=== PATIENT | female | born 1975 | race Caucasian/White ===

== ENCOUNTER → 2017-10-14 12:42 | Outpatient (CLI) | payer MEDICAID ==
[~2017-10-14 12:42] MED LIST: HYDROCODONE-APA1 TAB PO; SYNTHROID125 MCG PO; VITAMIN E400 UNI2 PO; ZESTRIL10 MG PO; [UNRECOGNIZED DRUG - OTHER] PO
[2017-11-26 07:40] VITALS: BMI 39.6
== END | disposition home or self-care (01) ==
LOC: D.NM 12:42
DX: R10.11 Right upper quadrant pain (principal)

== ENCOUNTER 2017-11-26 06:55 | Day surgery (SDC) | payer MEDICAID ==
[2017-11-24 11:23] LABS: BASOPHILS 0.1 % (0-2); EOSINOPHILS 2.2 % (0-7); HEMOGLOBIN 10.7 g/dL (12-16); IMMATURE GRANULOCYTES 0.3 % (0-5); LYMPHOCYTES 27.6 % (15-50); MCH 29.1 pg (26.0-34.0); MCHC 31.5 g/dL (31.0-37.0); MCV 92.4 fL (80.0-100.0); MEAN PLATELET VOLUME 10.2 fL (7.4-10.4); MONOCYTES 10.2 % (2-11); NEUTROPHILS 59.6 % (40-80); PLATELET COUNT 275 10x3/uL (130-400); RBC 3.68 10x6/uL (4.00-5.40); RDW 13.9 % (11.5-14.5); WBC 7.6 10x3/uL (4.8-10.8)
[2017-11-24 11:38] LABS: ANION GAP 9.8 mmol/L (8-16); CALCIUM 7.7 mg/dL (8.5-10.1); CARBON DIOXIDE 27.9 mmol/L (21.0-32.0); CREATININE - SERUM 0.9 mg/dL (0.6-1.3); POTASSIUM - SERUM 3.7 mmol/L (3.5-5.1)
[~2017-11-26] VITALS: Ht 165.1 cm; Wt 108.0 kg
--- NOTE | ~2017-11-26 | OP ---
PATIENT NAME: CODY CONTRERAS MEDICAL RECORD: [id number] :79 LOCATION:[facility] ADMISSION DATE: SURGEON: BILLY MAIER MD DATE OF OPERATION: 11/26/2017 PREOPERATIVE DIAGNOSES: 1. Biliary dyskinesia. 2. Hypertension. 3. Irritable bowel syndrome. 4. Morbid obesity with BMI of 40. POSTOPERATIVE DIAGNOSES: 1. Biliary dyskinesia. 2. Hypertension. 3. Irritable bowel syndrome. 4. Morbid obesity with BMI of 40. PROCEDURE: Laparoscopic cholecystectomy. SURGEON: Billy Maier MD REPORT OF PROCEDURE: The patient's abdomen was prepped and draped in sterile fashion. A cutdown was made on the superior aspect of the umbilicus, 0 Vicryls were placed in the fascia bilaterally and the fascia was incised with a 15 blade. I then bluntly entered the peritoneal cavity and placed a 12-mm Mikhail port. Under direct visualization, a 5-mm trocar was placed in the epigastrium and two more 5-mm trocars were placed in the right subcostal region. The gallbladder was grasped and elevated. The cystic artery and cystic duct were dissected free and these were clipped proximally and distally and ligated in standard fashion. The gallbladder was then taken off the liver bed using electrocautery and placed in the right upper quadrant. Any bleeding from the liver bed was then treated with electrocautery. We irrigated out the right upper quadrant and assured there was no sign of any bleeding or bile leakage. At this point, the ports and insufflation were then removed and the gallbladder was taken out through the umbilicus. The umbilical fascia was closed with interrupted 0 Vicryls times 3. The wounds were then irrigated out and infused with a total of 10 mL of 0.25% Marcaine with epinephrine. The skin incisions were all closed with subcutaneous 5-0 Monocryl and dressed appropriately. COMPLICATIONS: None. CONDITION: Stable. ANESTHESIA: General endotracheal and local. BLOOD LOSS: Minimal. TRANSINT:[id number] Voice Confirmation ID: [id number] DOCUMENT ID: [id number] OPERATIVE REPORT [id number] JAVIER CONTRERASBILLY WEIR MD at 1041 CC: YVES JUDD MD [id number] DICTATION DATE: 11/26/17 1007 VALUE ANALYSIS COORDINATOR: 11/26/17 1033 [facility] [place] 11/26/17 [place] [id number] [place] [address]
[~2017-11-26 06:55] MED LIST changes: -HYDROCODONE-APA1 TAB PO
[2017-11-26 07:40] VITALS: BP 129/74; Ht 165.1 cm; Wt 108.0 kg
[2017-11-26] MEDS ORDERED: HYDROCODONE-APA1 TAB PO (10:02)
== END 2017-11-26 12:00 | disposition home or self-care (01) ==
LOC: D.OPS 06:55 → D.PAN 08:55 → D.OPS 08:55 → D.PAN 09:00 → D.OPS 09:00
PROVIDERS: Surgery
DX: K82.4 Cholesterolosis of gallbladder (principal); I10 Essential (primary) hypertension; K58.9 Irritable bowel syndrome, unspecified; E66.01 Morbid (severe) obesity due to excess calories; Z68.41 Body mass index [BMI] 40.0-44.9, adult; Z01.812 Encounter for preprocedural laboratory examination

== ENCOUNTER 2018-05-25 19:00 | Outpatient (CLI) | payer MEDICAID ==
[2017-11-26 07:40] VITALS: BMI 39.6
[~2018-05-25 19:00] MED LIST changes: +HYDROCODONE-APA1 TAB PO
== END 2018-05-25 23:59 | disposition home or self-care (01) ==
LOC: D.MAMMO 19:00
PROVIDERS: ATTEND Family Medicine
DX: N63.14 Unspecified lump in the right breast, lower inner quadrant (principal); N63.21 Unspecified lump in the left breast, upper outer quadrant

== ENCOUNTER 2020-07-24 15:00 | Outpatient (CLI) | payer OTHER ==
[2017-11-26 07:40] VITALS: BMI 39.6
== END 2020-07-24 23:59 | disposition home or self-care (01) ==
LOC: D.MAMMO 15:00
PROVIDERS: ATTEND Obstetrics & Gynecology
DX: Z12.31 Encounter for screening mammogram for malignant neoplasm of breast (principal)

== ENCOUNTER 2020-08-16 06:00 | Day surgery (SDC) | payer OTHER ==
[2020-08-13 11:22] LABS: BASOPHILS 1.1 % (0-2); EOSINOPHILS 2.2 % (0-7); HEMATOCRIT 37.3 % (36.0-48.0); HEMOGLOBIN 12.1 g/dL (12-16); LYMPHOCYTES 33.2 % (15-50); MCH 28.9 pg (26.0-34.0); MCHC 32.6 g/dL (31.0-37.0); MCV 88.9 fL (80.0-100.0); MEAN PLATELET VOLUME 8.4 fL (7.4-10.4); MONOCYTES 10.9 % (2-11); NEUTROPHILS 52.6 % (40-80); PLATELET COUNT 326 10x3/uL (130-400); RDW 13.2 % (11.5-14.5); WBC 6.6 10x3/uL (4.8-10.8)
[~2020-08-16] VITALS: Ht 165.1 cm; Wt 103.0 kg
[~2020-08-16 06:00] MED LIST changes: +ADIPEX-P37.5 M1 PO; +DITROPAN XL 1010 MG PO; +LISINOPRIL10 MG PO; +OMEPRAZOLE20 M1 PO
[2020-08-16 08:10] VITALS: BP 147/85; Ht 165.1 cm; Wt 103.0 kg
[2020-08-16 08:27] LABS: HCG URINE NEGATIVE (NEGATIVE)
--- NOTE | 2020-08-16 10:42 | NUR ---
DC TEACHING COMPLETE TO PT AND MOM. ACKNOWLEDGES UNDERSTANDING. 1105 PIV DC'D WITH CATHETER INTACT. MOM HELPING PT TO GET DRESSED. 1136 PT DC'D VIA WC ACCOMPANIED BY THIS NURSE WITH ALL BELONGINGS AND DC PACKET TO POV WITH MOM DRIVING.
--- NOTE | 2020-08-23 17:17 | OP ---
PATIENT NAME: CODY CONTRERAS MEDICAL RECORD: [id number] :79 LOCATION:[facility] ADMISSION DATE: SURGEON: CARLA JULES DO DATE OF OPERATION: 08/16/2020 PREOPERATIVE DIAGNOSES: Abnormal uterine bleeding, menorrhagia. POSTOPERATIVE DIAGNOSES: Anormal uterine bleeding, menorrhagia. PRIMARY SURGEON: Carla Jules DO ANESTHESIA: LMA. PROCEDURE: Hysteroscopy, D&C, NovaSure ablation. FINDINGS: 9-cm uterus. Bilateral ostia within normal limits. Grossly normal endometrial tissue, 100 cc fluid deficit via [employer] assistant public defender, NovaSure measurements 6.5 cm in length, 3.5 cm in width, 125 mandujano and a burn RF time of 1 minute 36 seconds. SPECIMEN: Endometrial curetting. ESTIMATED BLOOD LOSS: 10 cc. IV FLUIDS: 700 cc. URINE OUTPUT: 75 cc of clear yellow urine via red rubber. COMPLICATIONS: None. Risks of surgery including bleeding, pain, infection, damage to surrounding structures including bladder, bowel, perforation, neurovascular structures, VTE, reoperation were reviewed with the patient. The patient expressed understanding and consent signed in the office. All questions answered preoperatively. DESCRIPTION OF PROCEDURE: The patient was taken to the operating room and general anesthesia was administered and found to be adequate. She was prepped and draped in normal sterile fashion in dorsal lithotomy position. speculum was placed into the vagina. Anterior lip of the cervix was grasped with a single tooth tenaculum. Uterus sounded to 9cm. Hegar dilators were inserted, sequentially dilated cervical os. The diagnostic hysteroscope was then introduced into the uterine cavity and the uterus was distended with normal saline fluid. Cavity was examined, found to be of normal shape without polyp. Both ostia visualized. The scope was removed. A small sharp curette was introduced and gentle curettage was performed and sent to pathology. NovaSure device was then opened and tested, fan deployed easily and was set to correct cavity length and introduced into the uterine cavity. The fan was fully deployed with gently movement to ensure a snug fit within the cavity. The above measurements were imported and cavity check was done. Trumpet was then slid down to the cervix and device was activated. Total burn time was 1 minute 36 seconds and the power was 125 mandujano. The fan was retracted and the device removed. The fan examine and revealed charred tissue. The tenaculum was removed, silver nitrate applied for hemostasis. Speculum then removed. All instrument, lap and needle counts were correct times 2. The patient OPERATIVE REPORT [id number] CODY CONTRERAS tolerated the procedure well and was brought to the recovery room in stable condition. TRANSINT:[id number] Voice Confirmation ID: [id number] DOCUMENT ID: [id number] CARLA JULES DO at 1717 CC: [id number] DICTATION DATE: 08/22/20 1636 LIFT DRIVER: 08/23/20 0103 [facility] 08/16/20 [facility] [address] [place] [address]
== END 2020-08-16 11:36 | disposition home or self-care (01) ==
LOC: D.OPS 06:00
PROVIDERS: ATTEND Obstetrics & Gynecology
DX: N93.9 Abnormal uterine and vaginal bleeding, unspecified (principal); N92.0 Excessive and frequent menstruation with regular cycle